=== PATIENT | female | born 1960 | race Caucasian/White ===

== ENCOUNTER → 2023-12-07 08:21 | Outpatient (REF) | payer BC, SELFPAY | LOC: HWRAD 08:21 | PROVIDERS: ATTENDING PHYSICIAN Internal Medicine Endocrinology, Diabetes & Metabolism; FAMILY PHYSICIAN Internal Medicine | DX: E04.2 Nontoxic multinodular goiter (principal) | CPT/HCPCS: 76536 ==

== ENCOUNTER 2024-04-10 08:04 | Emergency (ER) | payer BC, SELFPAY ==
[2024-04-10 08:08] VITALS: BP 136/91
--- NOTE | 2024-04-10 08:24 | ED.GENMED ---
History of Present Illness
General
Chief Complaint: Abdominal Pain
Source: patient
Time Seen by Provider: 04/10/24 08:14
History of Present Illness
History of Present Illness:
64-year-old female with past medical history of hypertension and history of diverticulosis/diverticulitis presenting to the emergency department for evaluation after developing some continuous lower abdominal discomfort since Wednesday, gradually worse
throughout the weekend, had a low-grade fever with Tmax of 100 yesterday, contacted her primary care provider who prescribed her Augmentin and patient has taken 1 total dose of this but woke up this morning with continued abdominal pain prompting
her to come to the ER today. She notes associated nausea (none currently), decreased p.o. intake and constipation noting she has not had a fully formed bowel movement since which is abnormal for her as she normally goes daily. Patient
also notes that earlier this morning she woke up with some bodyaches and a headache but that these are both now resolved as well. She did not take any other medications prior to arrival. No known sick contacts or recent travel. Social history was
noncontributory. Surgical history was noted for only.
Past History
Past History
ED Past Medical History: HTN and Other (Diverticulosis/diverticulitis)
ED Past Surgical History:
Patient has exhibited threatening behavior?: No
Social History
Tobacco: Non-smoker
Alcohol: None
Drug: None
Personal:
Living: with family
Review of Systems
Review of Systems
All Other Systems: ROS reviewed and negative except as documented in HPI and ROS
Phy Exam
Physical Exam
Physical Exam:
GENERAL: Alert , in no apparent distress
EYE: clear conjunctiva b/l
HEAD: NCAT
ENT: o/p clr, mmm.
CARDIAC: Regular rate and rhythm .
LUNGS: Clear breath sounds bilaterally, no acute respiratory distress, no wheezes/rales/rhonchi
ABDOMEN: Soft, mild diffuse tenderness along the lower abdomen, no r/g, no cvat
NEUROLOGICAL: Alert and oriented
SKIN: Warm and dry, skin intact.
MUSCULOSKELETAL: No edema, well perfused.
PSYCH: Normal and appropriate interaction.
Scores
Heart Failure Risk
Heart Failure Risk Score: Not Applicable
Heart Score for Chest Pain Patients
STEMI patient?: Not applicable
Withdrawal Assessment of Alcohol
Withdrawal Assessment Completed?: Not applicable
Course
Orders/Labs/Results
Orders:
Orders
04/10/24 08:23
0.9% Sodium Chloride 1000 ml [Nss] 1,000 ml IV BOLUS
Ketorolac [Toradol] 30 mg IV NOW STA
04/10/24 08:24
CT Abd/Pel (IV only)-DH only Urgent
Comment:
Reason For Exam: diffuse lower abd pain, hx diverticulitis
04/10/24 08:31
Complete Blood Count/With Diff Urgent
Comprehensive Metabolic Panel Urgent
Lipase Urgent
Urinalysis Reflex To Culture Urgent
Date Specimen was Collected: 04/10/24
Time Specimen was Collected: 08:27
Urine Microscopic Reflex Cult Urgent
Urine Culture Urgent
CANDY Source: U
Specimen Description:
Date Specimen was Collected: 04/10/24
Time Specimen was Collected: 08:27
Abnormal Lab Results
04/10/24
08:31
WBC 15.1 H 10^3/uL
(4.8-10.8)
Abs Immat Gran (auto) 0.1 H 10^3/uL
(0-0.05)
Absolute Neuts (auto) 11.2 H 10^3/uL
(1.4-6.5)
Absolute Monos (auto) 0.7 H 10^3/uL
(0.1-0.6)
Lymphocytes % 20.0 L %
(20.5-51.1)
Glucose 119 H mg/dl
(70-99)
Total Bilirubin 2.4 H mg/dl
(0.2-1.3)
Ur Occult Blood Reflex 1+ A
(Negative)
Leukocyte Esterase Rfl 1+ A
(Negative)
Urine Bacteria (Reflex) Few A
(Negative)
04/10/24 08:31
04/10/24 08:31
Vital Signs
Initial and Last Documented VS:
Initial Vital Signs
Temp Pulse Resp BP Pulse Ox
98.8 F 96 18 136/91 96
04/10/24 08:08 04/10/24 08:08 04/10/24 08:08 04/10/24 08:08 04/10/24 08:08
Last Documented Vital Signs
Temp Pulse Resp BP Pulse Ox
98.8 F 96 18 138/63 94
04/10/24 08:08 04/10/24 08:08 04/10/24 08:08 04/10/24 09:00 04/10/24 09:45
MDM/Problems Addressed
Differential Diagnosis Includes:
Diverticulitis, appendicitis, pancreatitis, GERD/gastritis, less concern for cholecystitis given location of patient's pain
MDM/Problems Addressed:
64-year-old female presenting to the emergency department for evaluation of lower abdominal pain that began Wednesday of last week, continued throughout the weekend and today prompting her to come to the emergency department. Patient was started on
Augmentin for presumed diverticulitis but is only taken 1 dose of this. Reports fever yesterday with Tmax of 100. Afebrile here today. Overall nontoxic in appearance and otherwise well. Given her past medical history of diverticulitis with
patient stating the pain does feel somewhat similar combined with her fever we will check a CT scan to further evaluate. Toradol ordered for pain control. Reassessment following
*Radiology
Radiology exam reviewed: radiology read reviewed
*Pulse Oximetry
Patient hypoxic: no
*Critical Care Note
Total Time (30-74mins, 75-104mins- exclusive of procedures): Not Applicable
Data Reviewed
Review of Other/Old Records Reveals: Labs, Records and Radiology Studies
Comment
Comment:
WBC - 15.1
TBili - 2.4. previously wnl. no other liver function test abnormality
UA - 1+ leukocytes however does have squamous cells and bacteria
Patient Management
Escalation/DeEscalation of care consider admission/obs:
Patient reports significant improvement of her pain with Toradol. CT scan shows mild uncomplicated sigmoid diverticulitis. There is no abscess or bowel perforation. We did discuss her lab findings as well as the incidental findings on her CT
report. Patient feels comfortable being discharged home and continuing the oral antibiotic her primary care prescribed her. She is aware of return precautions to the ER. She will also follow-up with her GI doctor and notes that she is due for a
colonoscopy as well.
ED Attending Note
-
Portions of this chart may have been created with voice recognition software.� Occasional wrong word or��sound alike� substitutions may have occurred due to the inherent limitations of voice recognition software.
Discharge Plan
Departure
Patient Disposition: Home (Routine Discharge)
Date of Disposition: 04/10/24
Time of Disposition: 10:35
Patient with high blood pressure during this ER visit?: No
Discharge Problem:
Diverticulitis of sigmoid colon
Instructions: Diverticulitis (DC)
Prescriptions:
No Action
amlodipine 2.5 mg Tablet
2.5 mg PO DAILY
oseltamivir [Tamiflu] 75 mg capsule
75 mg PO BID 5 Days Qty: 10 0RF
albuterol sulfate 90 mcg/actuation aerosol powdr breath activated
2 inh inhalation Q4H PRN (Reason: shortness of breath or wheezing) Qty: 1 0RF
Referrals:
Gerardo Ashby MD [Family Provider] -
Interventions
Interventions:
*Risk Screen - Suicide Last Done: 04/10/24 08:08
*General Assessment Last Done: 04/10/24 08:08
*Neglect/Abuse Screening Last Done: 04/10/24 08:08
*ED COVID-19 Vaccine History Last Done: 04/10/24 08:08
*Nursing Disposition Last Done: 04/10/24 10:40
PR-Zuagip-Iovadpwkgx Assessment Last Done: 04/10/24 08:19
Discharge Date and Time
Discharge Date/Time: 04/10/24 10:57
Print Language: YEMENI
[2024-04-10] MEDS: TORADOL 30 MG IV (08:32)
[2024-04-10] MEDS: NSS 1000 IV (08:33)
[2024-04-10 08:34] VITALS: BP 129/71
[2024-04-10 08:59] LABS: % Basophils 0.6 % (0-2); % Eosinophils 0.3 % (0-6); % Immature Granulocytes 0.3 % (0-0.5); % Monocytes 4.6 % (1.7-9.3); % Neutrophils 74.2 % (42.2-75.2); Absolute Basophils 0.1 10^3/uL (0-0.2); Absolute Eosinophils 0.1 10^3/uL (0-0.7); Absolute Immature Granulocytes 0.1 10^3/uL (0-0.05); Absolute Monocytes 0.7 10^3/uL (0.1-0.6); Absolute Neutrophils 11.2 10^3/uL (1.4-6.5); Hematocrit 42.8 % (37.0-47.0); Hemoglobin 14.5 g/dL (12.0-16.0); Mean Corp Hgb Conc. 33.9 g/dL (33.0-37.0); Mean Corpuscular Hgb 29.7 pg (27.0-31.0); Mean Corpuscular Volume 87.5 fL (81.0-99.0); Mean Platelet Volume 10.1 fL (7.4-10.4); Nucleated Red Blood Cells % 0 %; Platelet Count 249 10^3/uL (130-400); Red Blood Cell Count 4.89 10^6/uL (4.20-5.40); Red Cell Dist. Width 13.6 % (11.5-14.5); White Blood Cell Count 15.1 10^3/uL (4.8-10.8)
[2024-04-10 09:00] VITALS: BP 138/63
[2024-04-10 09:03] LABS: ALT (SGPT) 23 U/L (0-35); AST (SGOT) 21 U/L (14-36); Albumin 4.4 g/dl (3.5-5.0); Alkaline Phosphatase 65 U/L (38-126); Blood Urea Nitrogen 12 mg/dl (7-17); Calcium 9.5 mg/dl (8.4-10.2); Carbon Dioxide 25 mmol/L (22-30); Chloride 106 mmol/L (98-107); Glucose 119 mg/dl (70-99); Lipase 39 U/L (23-300); Sodium 137 mmol/L (135-145); Total Bilirubin 2.4 mg/dl (0.2-1.3); Total Protein 6.8 g/dl (6.3-8.2); eGFR > 60.00
[2024-04-10 09:13] LABS: Urine Albumin Trace (Neg - Trace); Urine Bilirubin Negative (Negative); Urine Character Clear (Clear); Urine Color Yellow; Urine Glucose Negative (Negative); Urine Ketone Negative (Negative); Urine Leukocyte 1+ (Negative); Urine Nitrite Negative (Negative); Urine Occult Blood 1+ (Negative); Urine Urobilinogen Negative (Neg - 1+)
[2024-04-10 09:50] LABS: Urine Bacteria Few (Negative); Urine Red Blood Cell 0-2 /HPF (0-2)
== END 2024-04-10 10:57 | disposition home or self-care (01) ==
LOC: EMR 08:04
PROVIDERS: Physician Assistant Medical; EMERGENCY PHYSICIAN Student in an Organized Health Care Education/Training Program; FAMILY PHYSICIAN Internal Medicine
DX: K57.32 Diverticulitis of large intestine without perforation or abscess without bleeding (principal); R51.9 Headache, unspecified; I10 Essential (primary) hypertension; Z91.048 Other nonmedicinal substance allergy status
CPT/HCPCS: 99285; 96361; 96374; 74177; 80053; 81003; 81015; 83690; 85025; 87086; Q9967

== ENCOUNTER → 2024-06-01 06:17 | Day surgery (SDC) | payer BC, SELFPAY | LOC: GI 06:17 | PROVIDERS: ATTENDING PHYSICIAN Specialist | DX: Z12.11 Encounter for screening for malignant neoplasm of colon (principal); K57.30 Diverticulosis of large intestine without perforation or abscess without bleeding; D12.0 Benign neoplasm of cecum; Z80.0 Family history of malignant neoplasm of digestive organs | CPT/HCPCS: 45385; 88305 ==

== ENCOUNTER → 2024-11-28 11:27 | Outpatient (REF) | payer BC, SELFPAY | LOC: HWRAD 11:27 | PROVIDERS: ATTENDING PHYSICIAN Internal Medicine Endocrinology, Diabetes & Metabolism; FAMILY PHYSICIAN Internal Medicine | DX: E04.2 Nontoxic multinodular goiter (principal) | CPT/HCPCS: 76536 ==

== ENCOUNTER 2025-01-06 16:34 | Emergency (ER) | payer BC, SELFPAY ==
[2025-01-06 16:35] VITALS: BP 188/95
[2025-01-06 16:52] LABS: % Basophils 1.2 % (0-2); % Eosinophils 3.5 % (0-6); % Immature Granulocytes 0.2 % (0-0.5); % Lymphocytes 47.1 % (20.5-51.1); Absolute Basophils 0.1 10^3/uL (0-0.2); Absolute Eosinophils 0.3 10^3/uL (0-0.7); Absolute Lymphocytes 4.3 10^3/uL (1.2-3.4); Absolute Monocytes 0.5 10^3/uL (0.1-0.6); Absolute Neutrophils 3.8 10^3/uL (1.4-6.5); Hematocrit 41.8 % (37.0-47.0); Hemoglobin 14.2 g/dL (12.0-16.0); Mean Corpuscular Hgb 29.5 pg (27.0-31.0); Mean Corpuscular Volume 86.7 fL (81.0-99.0); Mean Platelet Volume 9.9 fL (7.4-10.4); Nucleated Red Blood Cells % 0 %; Platelet Count 257 10^3/uL (130-400); Red Blood Cell Count 4.82 10^6/uL (4.20-5.40); Red Cell Dist. Width 14.2 % (11.5-14.5); White Blood Cell Count 9.1 10^3/uL (4.8-10.8)
[2025-01-06 17:07] LABS: ALT (SGPT) 28 U/L (0-35); AST (SGOT) 21 U/L (14-36); Albumin 4.8 g/dl (3.5-5.0); Alkaline Phosphatase 68 U/L (38-126); Blood Urea Nitrogen 19 mg/dl (7-17); Calcium 9.8 mg/dl (8.4-10.2); Carbon Dioxide 26 mmol/L (22-30); Chloride 110 mmol/L (98-107); Glucose 102 mg/dl (70-99); Sodium 144 mmol/L (135-145); Total Bilirubin 0.9 mg/dl (0.2-1.3); Total Protein 7.3 g/dl (6.3-8.2); eGFR > 60.00
[2025-01-06 17:28] VITALS: BMI 31.4
[2025-01-06 17:31] VITALS: BP 178/83
--- NOTE | 2025-01-06 17:44 | ED.GENMED ---
History of Present Illness
General
Chief Complaint: Facial Problem
Source: patient
Exam Limitations: none
Time Seen by Provider: 01/06/25 17:26
History of Present Illness
History of Present Illness:
Patient was in the shower about an hour or 2 prior to ER arrival. She noticed the feeling of droopiness to her left lateral lip. Looking in the mirror she did not notice any issues but it felt that way to her. No headache no visual issues no
double vision speech issues gait issues or other neurologic issues. No history of same.
Past History
Past History
ED Past Medical History: HTN and Other (Diverticulosis/diverticulitis)
ED Past Surgical History:
Patient has exhibited threatening behavior?: No
Social History
Tobacco: Non-smoker
Alcohol: None
Drug: None
Personal:
Living: with family
Review of Systems
Review of Systems
All Other Systems: Not applicable
Respiratory: Reports no symptoms
Cardiac: Reports no symptoms
Phy Exam
Physical Exam
Physical Exam:
GENERAL: Alert and oriented in no apparent distress
EYE: Orbits normal.... Except for slight anisocoria to the left eye which is known
NECK: Supple, no carotid bruit
ENT: Pharynx without erythema
CARDIAC: Regular rate and rhythm without any obvious murmurs.
LUNGS: Clear breath sounds,normal
ABDOMEN: Soft, without focal tenderness or distention
NEUROLOGICAL: Alert and oriented , cranial nerves II through XII intact. Speech normal. Extraocular muscles intact. [id number] normal. [id number]-is-[id number] normal. Lower extremity strength normal. Light touch intact.
SKIN: Warm and dry, no rash or lesion, no discoloration, skin intact.
MUSCULOSKELETAL: No edema,no deformity.Good color
PSYCH: Normal and appropriate interaction.
Course
Orders/Labs/Results
Orders:
Orders
01/06/25 16:41
CT Head W/o Iv Contrast Urgent
Comment:
Reason For Exam: possible facial droop, resolved
01/06/25 16:43
Complete Blood Count/With Diff Urgent
Comprehensive Metabolic Panel Urgent
01/06/25 17:46
CT Head & Neck Angio W/wo IV Urgent
Reason For Exam: Left facial droop/left anisocoria
IV Insert/Care/Rem.- Treatment PRN
0.9% Sodium Chloride 500 ml [Nss] 500 ml IV BOLUS
Abnormal Lab Results
01/06/25
16:43
Absolute Lymphs (auto) 4.3 H 10^3/uL
(1.2-3.4)
Neutrophils % 42.0 L %
(42.2-75.2)
Chloride 110 H mmol/L
(98-107)
BUN 19 H mg/dl
(7-17)
Glucose 102 H mg/dl
(70-99)
01/06/25 16:43
01/06/25 16:43
Vital Signs
Initial and Last Documented VS:
Initial Vital Signs
Temp Pulse Resp BP Pulse Ox
98.5 F 105 16 188/95 96
01/06/25 16:35 01/06/25 16:35 01/06/25 16:35 01/06/25 16:35 01/06/25 16:35
Last Documented Vital Signs
Temp Pulse Resp BP Pulse Ox
97.8 F 94 20 158/79 98
01/06/25 19:41 01/06/25 19:41 01/06/25 19:41 01/06/25 19:41 01/06/25 20:44
*Radiology
Radiology exam reviewed: radiology read reviewed (No acute abnormalities. CT angiography negative. Small thyroid nodules noted to patient.)
*Pulse Oximetry
Patient hypoxic: no
*Critical Care Note
Total Time (30-74mins, 75-104mins- exclusive of procedures): Not Applicable
Update Note
Update Note:
Nothing clinically to support an obvious stroke. Medically stable. CTA head CT negative. Stable for discharge. Copy of report given to patient. Aware of thyroid nodules
ED Attending Note
-
Portions of this chart may have been created with voice recognition software.� Occasional wrong word or��sound alike� substitutions may have occurred due to the inherent limitations of voice recognition software.
Discharge Plan
Departure
Patient Disposition: Home (Routine Discharge)
Date of Disposition: 01/06/25
Time of Disposition: 20:11
Patient with high blood pressure during this ER visit?: Yes
Discharge Problem:
Evaluation for possible left facial droo, Hypertension, Known thyroid nodules
Instructions: BLOOD PRESSURE
Prescriptions:
No Action
amlodipine 2.5 mg Tablet
5 mg PO DAILY
Referrals:
Gerardo Ashby MD [Family Provider] - Follow up in 2-3 days
Activity Restrictions/Additional Instructions:
Follow-up closely with your physician. Return immediately with any new or unusual neurologic symptoms unusual headache etc.
Interventions
Interventions:
*Risk Screen - Suicide Last Done: 01/06/25 16:35
*General Assessment Last Done: 01/06/25 16:35
*Neglect/Abuse Screening Last Done: 01/06/25 16:35
*ED- Fall Risk Assessment Last Done: 01/06/25 17:28
*ED COVID-19 Vaccine History Last Done: 01/06/25 16:35
*Nursing Disposition Last Done: 01/06/25 20:40
ED- Neurological Assessment Last Done: 01/06/25 19:41
ED-Skin Assessment Last Done: 01/06/25 17:28
Discharge Date and Time
Discharge Date/Time: 01/06/25 20:47
Print Language: GERMAN
[2025-01-06] MEDS: NSS 500 IV (17:58)
[2025-01-06 18:00] VITALS: BP 157/91
[2025-01-06 19:41] VITALS: BP 158/79
== END 2025-01-06 20:47 | disposition home or self-care (01) ==
LOC: EMR 16:34
PROVIDERS: Emergency Medicine; EMERGENCY PHYSICIAN Emergency Medicine; FAMILY PHYSICIAN Internal Medicine
DX: H57.02 Anisocoria (principal); I10 Essential (primary) hypertension; E04.2 Nontoxic multinodular goiter
CPT/HCPCS: 96360; 96361; 99284; 70450; 70496; 70498; 80053; 85025; Q9967

== ENCOUNTER → 2025-02-26 12:48 | Outpatient (REF) | payer BC, SELFPAY | LOC: RCS 12:48 | PROVIDERS: ATTENDING PHYSICIAN Internal Medicine Cardiovascular Disease; FAMILY PHYSICIAN Internal Medicine | DX: I10 Essential (primary) hypertension (principal); R07.89 Other chest pain | CPT/HCPCS: 93306 ==

== ENCOUNTER → 2025-03-05 09:43 | Outpatient (REF) | payer BC, SELFPAY | LOC: RCS 09:43 | PROVIDERS: ATTENDING PHYSICIAN Internal Medicine Cardiovascular Disease; FAMILY PHYSICIAN Internal Medicine | DX: I10 Essential (primary) hypertension (principal) | CPT/HCPCS: 93017 ==

== ENCOUNTER → 2025-04-30 09:41 | Outpatient (REF) | payer BC, SELFPAY | LOC: RCS 09:41 | PROVIDERS: ATTENDING PHYSICIAN Specialist; FAMILY PHYSICIAN Internal Medicine | DX: Z01.818 Encounter for other preprocedural examination (principal) | CPT/HCPCS: 93005 ==

== ENCOUNTER → 2025-07-18 11:23 | Outpatient (REF) | payer BC, SELFPAY | LOC: HWRAD 11:23 | PROVIDERS: ATTENDING PHYSICIAN Internal Medicine Rheumatology; FAMILY PHYSICIAN Internal Medicine | DX: M15.0 Primary generalized (osteo)arthritis (principal) | CPT/HCPCS: 73130; 73630 ==